=== PATIENT | female | born 1935 | race Native Hawaiian/Other Pacific Islander ===

== ENCOUNTER 2021-05-16 22:07 | Emergency (ER) | payer OTHER ==
[~2021-05-16] VITALS: Ht 162.6 cm; Wt 76.7 kg
[2021-05-16 22:07] VITALS: BP 136/78; TEMP 98.4
[2021-05-16 22:48] LABS: PLATELET COUNT 134 K/uL (152-353)
[2021-05-16 22:54] LABS: POTASSIUM 2.6 mmol/L (3.6-5.2)
[2021-05-17] MEDS ORDERED: VALS PO (04:36)
[2021-05-17] MEDS ORDERED: AMLODIPINE PO (04:36)
[2021-05-17] MEDS ORDERED: BREO ELLIPTA 101 INH INH (04:39)
[2021-05-17] MEDS ORDERED: FURO40TA93 PO (04:40)
[2021-05-17] MEDS ORDERED: DULOXETINE HYDR60 MG PO (04:40)
[2021-05-17] MEDS ORDERED: PANTOPRAZOLE 40MG TA PO (04:41)
[2021-05-17] MEDS ORDERED: EASY-LAX100 MG PO (04:42)
[2021-05-17] MEDS ORDERED: APIX1TAB PO (04:42)
[2021-05-17] MEDS ORDERED: ARNUITY EL50 MCG/ACT INH (04:43)
[2021-05-17] MEDS ORDERED: METOPROLOL25 M1 PO (04:44)
[2021-05-17] MEDS ORDERED: NYAMYC100000 UNI EX (04:45)
[2021-05-17] MEDS ORDERED: LIPITOR80 MG PO (04:46)
[2021-05-17] MEDS ORDERED: TRAZODONE HYDRO50 MG PO (04:47)
[2021-05-17] MEDS ORDERED: LEVALBUTER1.25 MG/0. INH (04:48)
== END 2021-05-17 02:20 | disposition other institution (70) ==
LOC: ED 22:07
PROVIDERS: Family Medicine
DX: F22 Delusional disorders (principal); E87.6 Hypokalemia; Z11.52 Encounter for screening for COVID-19; Z04.6 Encounter for general psychiatric examination, requested by authority
CPT/HCPCS: 36415; 80053; 85027; 87635; 93005; 99283; U0003

== ENCOUNTER 2021-06-12 20:13 | Emergency (ER) | payer OTHER ==
[~2021-06-12] VITALS: Ht 162.6 cm; Wt 75.3 kg
[2021-06-12 20:13] VITALS: BP 115/71; TEMP 97.1
[~2021-06-12 20:13] MED LIST: AMLODIPINE PO; APIX1TAB PO; ARIPIPRAZOLE10 MG PO; ARNUITY EL50 MCG/ACT INH; ATOR20TA2 PO; BREO ELLIPTA 101 INH INH; BUSP15TAB2 PO; DULO30CA PO; DULOXETINE HYDR60 MG PO; EASY-LAX100 MG PO; FURO40TA93 PO; GABA100C2 PO; HALO5TAB10 PO; LEVALBUTER1.25 MG/0. INH; LIPITOR80 MG PO; MAGN400T4 PO; METOPROLOL25 M1 PO; NYAMYC100000 UNI EX; OLAN10INJ IM; PANTOPRAZOLE 40MG TA PO; POTA20TA4 PO; TRAZODONE HYDRO50 MG PO; VALS PO
[2021-06-12 20:59] LABS: PLATELET COUNT 160 K/uL (152-353)
[2021-06-12 21:12] LABS: POTASSIUM 3.4 mmol/L (3.6-5.2)
== END 2021-06-12 22:03 | disposition still patient (30) ==
LOC: ED 20:13
PROVIDERS: Emergency Medicine
DX: F03.91 Unspecified dementia, unspecified severity, with behavioral disturbance (principal); R45.1 Restlessness and agitation; I48.91 Unspecified atrial fibrillation; E87.6 Hypokalemia; Z11.52 Encounter for screening for COVID-19; Z04.6 Encounter for general psychiatric examination, requested by authority
CPT/HCPCS: 80053; 85027; 87635; 93005; 99283; U0003